=== PATIENT | male | born 1995 | race Caucasian/White ===

== ENCOUNTER 2025-03-04 21:14 | Emergency (ER) | payer SELFPAY ==
[~2025-03-04] VITALS: Ht 160 cm; Wt 84.0 kg
[2025-03-04 21:22] VITALS: BP 118/79; TEMP 36.7; O2SAT 99
[2025-03-04 21:26] VITALS: PULSE 107; RESP 18; O2SAT 98
[2025-03-04] MEDS ORDERED: BO1 TP (21:34)
== END 2025-03-04 21:48 | disposition home or self-care (01) ==
LOC: ER 21:14
DX: T22.011A Burn of unspecified degree of right forearm, initial encounter (principal); T79.9XXA Unspecified early complication of trauma, initial encounter; X08.8XXA Exposure to other specified smoke, fire and flames, initial encounter; Y93.89 Activity, other specified; Y92.89 Other specified places as the place of occurrence of the external cause; Y99.8 Other external cause status
CPT/HCPCS: 99282